=== PATIENT | female | born 1990 | race Caucasian/White ===

== ENCOUNTER 2017-04-10 18:08 | Emergency (ER) | payer OTHER ==
[~2017-04-10] VITALS: Ht 162.6 cm; Wt 106.1 kg
[~2017-04-10 18:08] MED LIST: ABAC300; ACET325; ACYC200 PO; ALBU90OI INH; AMIT25 PO; AMOCLA500 PO; AMOX500 PO; ASPI81EC PO; AZIT500 PO; BENTYL20 MG PO; BENZ100A PO; BIRTH CONTROL; BUPR150ER PO; BUSP10 PO; CEPH500 PO; CLIN150 PO; CLIN300 PO; CODACE30 PO; CODGUAEL PO; CYCL10 PO; Crutch1 EACH MISC; DIPH50 PO; DOXY100 PO; EPIPEN 2-P0.3 MG/0.3 IJ; ERGO50000 PO; ERYT.5TO RIGHTEYE; FLUC150A PO; Flagyl500 MG PO; GUAI600T33 PO; HYDACE5 PO; HYDGUAL120 PO; IBUP200; IBUP600 PO; IBUP800; IBUP800 PO; LEVSOD50 PO; LORA.5; LORA1; LORA1 PO; MAGCIT300 PO; MECL25 PO; MEDICAL MARIJUANA; MELO7.5 PO; METF500; METO10 PO; NAPR500; NAPR500 PO; NAPROXEN PRN; NEOCOLOTSU OT; Naprosyn500 MG PO; ONDA4 PO; OSEL75CA PO; OXYACE5T PO; OXYC5; PENVK500; PENVK500 PO; PRED5 PO; PROACE100; PROACE100 PO; PROM25 PO; Prednisone20 MG PO; RXNAPNA550 PO; RXOXYACE PO; RXTRAM50 PO; SULF10OPSA OU; SULTRIDS PO; Seroquel50 MG PO; Synthroid25 MCG PO; TRAM50; TRAM50 PO; TRAZ50 PO; TRIA80TC; Ultram PO; Ultram50 MG PO; VENL37.5 PO; VENL37.5ER PO; VENL75ER PO; ZYRTEC10 M1 PO; [UNRECOGNIZED DRUG - OTHER] MC; [UNRECOGNIZED DRUG - REMARK]; [UNRECOGNIZED DRUG - REMARK]
[2017-04-10 20:15] LABS: Calcium, Ionized (POC) 1.18 mmol/L (1.10-1.46); Chloride (POC) 103 mmol/L (98-108); Creatinine (POC) 0.6 mg/dL (0.6-1.0); Glucose (ISTAT POC) 86 mg/dL (70-99); Hemoglobin (POC) 14.3 g/dL (12.0-16.0); Potassium (POC) 3.4 mmol/L (3.5-5.5); Sodium (POC) 143 mmol/L (135-148); Total CO2 (POC) 27 mmol/L (21-32)
[2017-04-10] MEDS ORDERED: Percocet 5-3251 EACH PO (20:23)
[2017-04-10] MEDS ORDERED: MEDR10 PO (20:23)
[2017-10-07] MEDS ORDERED: LAMO25 PO (11:37)
[2017-10-07] MEDS ORDERED: Keflex500 MG PO (13:08)
[2017-10-07] MEDS ORDERED: Percocet 5-3251 EACH PO (13:08)
== END 2017-04-10 20:40 | disposition home or self-care (01) ==
LOC: ER 18:08
PROVIDERS: Emergency Medicine
DX: N93.8 Other specified abnormal uterine and vaginal bleeding (principal); N94.6 Dysmenorrhea, unspecified; F41.9 Anxiety disorder, unspecified; F43.10 Post-traumatic stress disorder, unspecified; G43.909 Migraine, unspecified, not intractable, without status migrainosus; F32.9 Major depressive disorder, single episode, unspecified; F90.9 Attention-deficit hyperactivity disorder, unspecified type; F17.210 Nicotine dependence, cigarettes, uncomplicated
CPT/HCPCS: 36415; 80047; 81025; 85014; 99283

== ENCOUNTER → 2017-04-17 | Outpatient (CLI) | payer OTHER ==
[~2017-04-17] MED LIST changes: +BENADRYL25 MG PO; +Bactrim Ds Tab1 EACH PO; +Keflex500 MG PO; +LAMO25 PO; +MEDR10 PO; +NICO21TP; +ONDA4ODT MM; +Percocet 5-3251 EACH PO; +Vistaril25 MG PO; +Zithromax250 MG PO; +Zofran4 MG PO
[2017-04-17 16:45] LABS: Specimen Source CERVIX
[2017-04-18 08:43] LABS: Source Cervix
== END ==
LOC: LAB 11:59
PROVIDERS: Registered Nurse Community Health
DX: Z11.3 Encounter for screening for infections with a predominantly sexual mode of transmission (principal); N94.12 Deep dyspareunia
CPT/HCPCS: 87070; 87205; 87491; 87591

== ENCOUNTER 2017-04-23 11:21 | Emergency (ER) | payer OTHER ==
[~2017-04-23] VITALS: Ht 162.6 cm; Wt 106.6 kg
[~2017-04-23 11:21] MED LIST changes: -BENADRYL25 MG PO; -Bactrim Ds Tab1 EACH PO; -Keflex500 MG PO; -LAMO25 PO; -NICO21TP; -ONDA4ODT MM; -Vistaril25 MG PO; -Zithromax250 MG PO; -Zofran4 MG PO
[2017-04-23] MEDS ORDERED: IBUP800 PO (11:40)
[2017-04-23] MEDS ORDERED: CLIN300 PO (11:40)
[2017-04-23] MEDS ORDERED: Vistaril25 MG PO (13:16)
[2017-04-23] MEDS ORDERED: Flagyl500 MG PO (13:16)
[2017-04-23] MEDS ORDERED: BENADRYL25 MG PO (13:16)
[2017-10-07] MEDS ORDERED: LAMO25 PO (11:37)
[2017-10-07] MEDS ORDERED: Keflex500 MG PO (13:08)
[2017-10-07] MEDS ORDERED: Percocet 5-3251 EACH PO (13:08)
== END 2017-04-23 13:37 | disposition home or self-care (01) ==
LOC: ER 11:21
DX: L27.1 Localized skin eruption due to drugs and medicaments taken internally (principal); T36.8X5A Adverse effect of other systemic antibiotics, initial encounter; F41.9 Anxiety disorder, unspecified; F32.9 Major depressive disorder, single episode, unspecified; F17.210 Nicotine dependence, cigarettes, uncomplicated; Z88.0 Allergy status to penicillin; Z88.1 Allergy status to other antibiotic agents; Z88.5 Allergy status to narcotic agent; Z79.899 Other long term (current) drug therapy; Z79.2 Long term (current) use of antibiotics; Z90.49 Acquired absence of other specified parts of digestive tract
CPT/HCPCS: 93005; 93010; 99283; Q0163

== ENCOUNTER 2017-05-13 10:37 | Emergency (ER) | payer OTHER ==
[~2017-05-13] VITALS: Ht 165.1 cm; Wt 106.6 kg
[~2017-05-13 10:37] MED LIST changes: +BENADRYL25 MG PO; +Vistaril25 MG PO
[2017-05-13 11:43] LABS: Source, Urine Clean Catch
[2017-05-13 11:50] LABS: Bilirubin, Urine Neg (Neg); Blood, Urine 5+ (Neg); Glucose Qualitative, Urine Neg (Neg); Ketones, Urine 1+ (Neg); Leukocyte Esterase, Urine 2+ (Neg); Nitrite, Urine Neg (Neg); Protein, Urine 2+ (Neg); Specific Gravity, Urine 1.015 (1.003-1.022); Urobilinogen, Urine NORM (Normal)
[2017-05-13 11:52] LABS: BASOPHILS ABSOLUTE AUTO 0.07 K/mm3 (0.00-0.23); BASOPHILS PERCENT AUTO 1 % (0-2); EOSINOPHILS ABSOLUTE AUTO 0.08 K/mm3 (0.00-0.68); EOSINOPHILS PERCENT AUTO 1 % (0-6); Hemoglobin 13.8 g/dL (11.5-16.0); IMMATURE GRAN ABSOLUTE AUTO 0.02 K/mm3 (0.00-0.10); IMMATURE GRAN PERCENT AUTO 0 % (0-1); LYMPHOCYTES ABSOLUTE AUTO 3.06 K/mm3 (0.84-5.20); LYMPHOCYTES PERCENT AUTO 29 % (21-46); MONOCYTES ABSOLUTE AUTO 0.42 K/mm3 (0.16-1.47); MONOCYTES PERCENT AUTO 4 % (4-13); Mean Corpuscular HGB 29.4 pg (26.0-34.0); Mean Corpuscular HGB Conc 32.1 g/dL (31.5-36.5); Mean Corpuscular Volume 92 fL (80-100); Mean Platelet Volume 9.4 fL (9.1-12.4); NEUTROPHILS ABSOLUTE AUTO 6.96 K/mm3 (1.96-9.15); NEUTROPHILS PERCENT AUTO 66 % (41-73); Platelet Count 449 K/mm3 (150-400); RDW Coefficient Variation 12.1 % (11.7-14.2); RDW Standard Deviation 40.8 fL (35.1-46.3); White Blood Cell Count 10.61 K/mm3 (4.00-11.30)
[2017-05-13 12:01] LABS: Color, Urine Red (P-Yellow)
[2017-05-13 12:02] LABS: Appearance, Urine Cloudy (Clear); Red Blood Cells, Urine TNTC /hpf (0-2); Squamous Epithelial Cells Few /hpf (Few)
[2017-05-13 12:04] LABS: Bacteria Few /hpf
[2017-05-13 12:17] LABS: Alanine Aminotransfer (ALT/SGP 48 U/L (12-78); Albumin, Blood 4.1 g/dL (3.4-5.0); Albumin/Globulin Ratio 1.1 (0.8-1.8); Alk Phos 68 U/L (50-136); Anion Gap 8 mmol/L (6-16); Aspartate Aminotrans (AST/SGOT 20 U/L (12-37); Bilirubin, Total 0.2 mg/dL (0.1-1.0); Blood Urea Nitrogen 9 mg/dL (8-24); Bun/Creatinine Ratio 15.5 (12.0-20.0); CO2, Blood 25 mmol/L (21-32); Calcium, Blood 8.9 mg/dL (8.5-10.1); Chloride, Blood 107 mmol/L (98-108); Creatinine, Blood 0.58 mg/dL (0.40-1.00); Globulin, Blood 3.8 g/dL (2.2-4.0); Glomerular Filtration Rate >60 (60-); Glucose, Blood 90 mg/dL (70-99); Sodium, Blood 140 mmol/L (136-145); Total Protein, Blood 7.9 g/dL (6.4-8.2)
[2017-10-07] MEDS ORDERED: LAMO25 PO (11:37)
[2017-10-07] MEDS ORDERED: Keflex500 MG PO (13:08)
[2017-10-07] MEDS ORDERED: Percocet 5-3251 EACH PO (13:08)
== END 2017-05-13 13:30 | disposition home or self-care (01) ==
LOC: ER 10:37
PROVIDERS: Emergency Medicine
DX: N92.1 Excessive and frequent menstruation with irregular cycle (principal); F41.9 Anxiety disorder, unspecified; F32.9 Major depressive disorder, single episode, unspecified; F43.10 Post-traumatic stress disorder, unspecified; G43.909 Migraine, unspecified, not intractable, without status migrainosus; F17.210 Nicotine dependence, cigarettes, uncomplicated; Z88.0 Allergy status to penicillin; Z88.1 Allergy status to other antibiotic agents; Z88.5 Allergy status to narcotic agent
CPT/HCPCS: 36415; 80053; 81001; 81025; 83690; 85025; 86850; 86900; 86901; 87086; 96374; 99283; J1885

== ENCOUNTER 2017-06-01 07:43 | Day surgery (SDC) | payer OTHER ==
[~2017-06-01] VITALS: Ht 165.1 cm; Wt 101.5 kg
[2017-06-01] MEDS ORDERED: NICO21TP (08:34)
[2017-10-07] MEDS ORDERED: LAMO25 PO (11:37)
[2017-10-07] MEDS ORDERED: Percocet 5-3251 EACH PO (13:08)
[2017-10-07] MEDS ORDERED: Keflex500 MG PO (13:08)
== END 2017-06-01 13:00 | disposition home or self-care (01) ==
LOC: ORSCSDS 07:43
PROVIDERS: Obstetrics & Gynecology
PROC: 0UDB7ZX Extraction of Endometrium, Via Natural or Artificial Opening, Diagnostic (ICD-10-PCS; principal; 2017-06-01 09:00)
PROC: 0WJJ4ZZ Inspection of Pelvic Cavity, Percutaneous Endoscopic Approach (ICD-10-PCS; principal; 2017-06-01 09:00)
DX: R10.2 Pelvic and perineal pain (principal); N80.3 Endometriosis of pelvic peritoneum; N93.8 Other specified abnormal uterine and vaginal bleeding; Z86.718 Personal history of other venous thrombosis and embolism; E28.2 Polycystic ovarian syndrome; M79.7 Fibromyalgia; F32.9 Major depressive disorder, single episode, unspecified; F17.210 Nicotine dependence, cigarettes, uncomplicated
CPT/HCPCS: 88305; J0171; J1100; J1580; J1885; J2250; J2405; J2710; J3010; J7120

== ENCOUNTER 2017-06-13 19:16 | Emergency (ER) | payer OTHER ==
[~2017-06-13] VITALS: Ht 165.1 cm; Wt 100.7 kg
[~2017-06-13 19:16] MED LIST changes: +NICO21TP
[2017-06-13] MEDS ORDERED: IBUP800 PO (19:38)
[2017-06-13] MEDS ORDERED: ONDA4ODT MM (20:52)
[2017-06-13] MEDS ORDERED: Zithromax250 MG PO (20:52)
== END 2017-06-13 21:05 | disposition home or self-care (01) ==
LOC: ER 19:16
DX: J02.9 Acute pharyngitis, unspecified (principal); Z88.0 Allergy status to penicillin; Z88.1 Allergy status to other antibiotic agents; Z88.5 Allergy status to narcotic agent; F41.9 Anxiety disorder, unspecified; G43.909 Migraine, unspecified, not intractable, without status migrainosus; F43.10 Post-traumatic stress disorder, unspecified; F32.9 Major depressive disorder, single episode, unspecified; F17.210 Nicotine dependence, cigarettes, uncomplicated
CPT/HCPCS: 87081; 87430; 99283

== ENCOUNTER 2017-11-10 09:28 | Emergency (ER) | payer OTHER ==
[~2017-11-10] VITALS: Ht 165.1 cm; Wt 98.4 kg
[~2017-11-10 09:28] MED LIST changes: +Keflex500 MG PO; +LAMO25 PO; +ONDA4ODT MM; +Zithromax250 MG PO
[2017-11-10 10:59] LABS: BASOPHILS ABSOLUTE AUTO 0.06 K/mm3 (0.00-0.23); BASOPHILS PERCENT AUTO 1 % (0-2); EOSINOPHILS ABSOLUTE AUTO 0.03 K/mm3 (0.00-0.68); EOSINOPHILS PERCENT AUTO 0 % (0-6); Hematocrit 42.5 % (33.0-51.0); Hemoglobin 13.6 g/dL (11.5-16.0); IMMATURE GRAN ABSOLUTE AUTO 0.04 K/mm3 (0.00-0.10); IMMATURE GRAN PERCENT AUTO 0 % (0-1); LYMPHOCYTES ABSOLUTE AUTO 2.65 K/mm3 (0.84-5.20); LYMPHOCYTES PERCENT AUTO 26 % (21-46); MONOCYTES ABSOLUTE AUTO 0.48 K/mm3 (0.16-1.47); MONOCYTES PERCENT AUTO 5 % (4-13); Mean Corpuscular HGB 29.1 pg (26.0-34.0); Mean Corpuscular Volume 91 fL (80-100); Mean Platelet Volume 9.2 fL (9.1-12.4); NEUTROPHILS PERCENT AUTO 68 % (41-73); Platelet Count 451 K/mm3 (150-400); RDW Coefficient Variation 12.3 % (11.7-14.2); RDW Standard Deviation 41.1 fL (35.1-46.3); Red Blood Cell Count 4.67 M/mm3 (3.80-5.20); White Blood Cell Count 10.26 K/mm3 (4.00-11.30)
[2017-11-10 11:14] LABS: Alanine Aminotransfer (ALT/SGP 24 U/L (12-78); Albumin, Blood 4.1 g/dL (3.4-5.0); Albumin/Globulin Ratio 1.1 (0.8-1.8); Alk Phos 87 U/L (50-136); Anion Gap 6 mmol/L (6-16); Aspartate Aminotrans (AST/SGOT 14 U/L (12-37); Bilirubin, Total 0.4 mg/dL (0.1-1.0); Blood Urea Nitrogen 11 mg/dL (8-24); Bun/Creatinine Ratio 15.6 (12.0-20.0); CO2, Blood 26 mmol/L (21-32); Calcium, Blood 8.9 mg/dL (8.5-10.1); Chloride, Blood 107 mmol/L (98-108); Creatinine, Blood 0.71 mg/dL (0.40-1.00); Globulin, Blood 3.6 g/dL (2.2-4.0); Glomerular Filtration Rate >60 (60-); Glucose, Blood 91 mg/dL (70-99); Potassium, Blood 4.3 mmol/L (3.5-5.5); Sodium, Blood 139 mmol/L (136-145); Total Protein, Blood 7.7 g/dL (6.4-8.2)
[2017-11-10] MEDS ORDERED: Zofran4 MG PO (11:39)
== END 2017-11-10 12:17 | disposition home or self-care (01) ==
LOC: ER 09:28
PROVIDERS: Physician Assistant
DX: N80.9 Endometriosis, unspecified (principal); F41.9 Anxiety disorder, unspecified; F32.9 Major depressive disorder, single episode, unspecified; F17.210 Nicotine dependence, cigarettes, uncomplicated; Z88.0 Allergy status to penicillin; Z88.1 Allergy status to other antibiotic agents; Z88.5 Allergy status to narcotic agent; Z79.899 Other long term (current) drug therapy
CPT/HCPCS: 36415; 80053; 81000; 81025; 85025; 96361; 96374; 99284-25; J1885; J7030

== ENCOUNTER 2018-01-12 14:36 | Emergency (ER) | payer OTHER ==
[~2018-01-12] VITALS: Ht 165.1 cm; Wt 97.5 kg
[~2018-01-12 14:36] MED LIST changes: +Zofran4 MG PO
[2018-01-12] MEDS ORDERED: Bactrim Ds Tab1 EACH PO (14:57)
[2018-01-12] MEDS ORDERED: CEPH500 PO (14:57)
== END 2018-01-12 15:15 | disposition home or self-care (01) ==
LOC: ER 14:36
DX: L08.9 Local infection of the skin and subcutaneous tissue, unspecified (principal); Z88.0 Allergy status to penicillin; Z88.1 Allergy status to other antibiotic agents; Z88.5 Allergy status to narcotic agent; Z79.899 Other long term (current) drug therapy; F41.9 Anxiety disorder, unspecified; F43.10 Post-traumatic stress disorder, unspecified; G43.909 Migraine, unspecified, not intractable, without status migrainosus; F32.9 Major depressive disorder, single episode, unspecified; F90.9 Attention-deficit hyperactivity disorder, unspecified type; F17.210 Nicotine dependence, cigarettes, uncomplicated
CPT/HCPCS: 99283

== ENCOUNTER 2018-08-22 06:01 | Day surgery (SDC) | payer OTHER ==
[~2018-08-22] VITALS: Ht 165.1 cm; Wt 97.3 kg
[~2018-08-22 06:01] MED LIST changes: +Bactrim Ds Tab1 EACH PO
[2018-08-22] MEDS ORDERED: HYDPAM50 PO (07:21)
--- NOTE | 2018-08-22 08:42 | NUR ---
08/22/18 [id number] Wendy Cho, SPIDER USED
--- NOTE | 2018-08-22 10:13 | NUR ---
08/22/18 Sharee3 Diam[facility] Pride PATIENT TO BR ON ARRIVAL TO STEP DOWN TO VOID, C/O 10/10 PAIN IN RIGHT ANKLE.MED C FENTANYL 50 MCG. TO BR IN WC, VOID, RETURNED TO RECLINER, NAUSEA WITH SMALL EMISIS, PAIN CONTINUES, IN RECLINER, FOOT ELEVATED ON PILLOWS. MED C FENTANYL 50 MCG AND ZOFRAN 4 MG IV, NOW RESTING MORE COMFORTABLE NOW RATES PAIN 4/10, NAUSEA RELIEVED
== END 2018-08-22 11:42 | disposition home or self-care (01) ==
LOC: ORSCSDS 06:01
PROVIDERS: Orthopaedic Surgery
PROC: 0MQQ4ZZ Repair Right Ankle Bursa and Ligament, Percutaneous Endoscopic Approach (ICD-10-PCS; principal; 2018-08-22 07:30)
PROC: 0SBF4ZZ Excision of Right Ankle Joint, Percutaneous Endoscopic Approach (ICD-10-PCS; principal; 2018-08-22 07:30)
PROC: 0SQF0ZZ Repair Right Ankle Joint, Open Approach (ICD-10-PCS; principal; 2018-08-22 07:30)
DX: M25.371 Other instability, right ankle (principal); M25.571 Pain in right ankle and joints of right foot; S93.401A Sprain of unspecified ligament of right ankle, initial encounter; F17.210 Nicotine dependence, cigarettes, uncomplicated; M79.7 Fibromyalgia; E66.9 Obesity, unspecified; Z68.35 Body mass index [BMI] 35.0-35.9, adult
CPT/HCPCS: C1713; J0171; J1100; J1885; J2250; J2405; J2704; J2765; J2795; J3010; J3370; J7120

== ENCOUNTER 2019-04-07 18:08 | Emergency (ER) | payer OTHER ==
[~2019-04-07] VITALS: Ht 165.1 cm; Wt 102.5 kg
[~2019-04-07 18:08] MED LIST changes: +HYDPAM50 PO
[2019-04-07 19:26] LABS: Source, Urine Clean Catch
[2019-04-07 19:34] LABS: Bilirubin, Urine Neg (Neg); Blood, Urine 1+ (Neg); Glucose Qualitative, Urine Neg (Neg); Ketones, Urine Neg (Neg); Leukocyte Esterase, Urine Neg (Neg); Nitrite, Urine Neg (Neg); Protein, Urine Neg (Neg); Specific Gravity, Urine 1.005 (1.003-1.022); Urobilinogen, Urine NORM (Normal)
[2019-04-07 19:40] LABS: Appearance, Urine Clear (Clear); Color, Urine Yellow (P-Yellow)
[2019-04-07 19:42] LABS: Influenza A Negative (NEGATIVE); Influenza B Negative (NEGATIVE)
[2019-04-07 19:46] LABS: Bacteria Mod /hpf; Red Blood Cells, Urine 0-2 /hpf (0-2); Squamous Epithelial Cells Few /hpf (Few); White Blood Cells, Urine 0-2 /hpf (0-5)
[2019-04-07] MEDS ORDERED: AMIT25 PO (21:56)
[2019-04-07] MEDS ORDERED: LEVSOD50 PO (21:56)
[2019-04-07] MEDS ORDERED: Buspirone HCl15 MG PO (21:56)
== END 2019-04-07 22:42 | disposition home or self-care (01) ==
LOC: ER 18:08
PROVIDERS: Physician Assistant
DX: J06.9 Acute upper respiratory infection, unspecified (principal); Z88.0 Allergy status to penicillin; Z88.1 Allergy status to other antibiotic agents; Z88.5 Allergy status to narcotic agent; Z79.899 Other long term (current) drug therapy; F43.10 Post-traumatic stress disorder, unspecified; G43.909 Migraine, unspecified, not intractable, without status migrainosus; F32.9 Major depressive disorder, single episode, unspecified; Z87.891 Personal history of nicotine dependence
CPT/HCPCS: 81001; 84703; 87086; 87804; 96372; 99283-25; J1885

== ENCOUNTER → 2019-10-27 | Outpatient (CLI) | payer OTHER ==
[~2019-10-27] MED LIST changes: +Buspirone HCl15 MG PO; +VITAMIN D-32000 UNIT PO
[2019-10-28 07:03] LABS: Candida species (DNA Probe) Negative (NEGATIVE); G. vaginalis (DNA Probe) Negative (NEGATIVE); T. vaginalis (DNA Probe) Negative (NEGATIVE)
== END ==
LOC: LAB 18:27 → LAB SHORT 18:27
PROVIDERS: Nurse Practitioner Family
DX: Z01.419 Encounter for gynecological examination (general) (routine) without abnormal findings (principal)
CPT/HCPCS: 87070; 87205; 87480; 87510; 87660; G0123

== ENCOUNTER → 2020-01-21 | Outpatient (CLI) | payer OTHER | END | disposition home or self-care (01) | LOC: LAB EV 17:01 → LAB SHORT 17:01 | DX: L72.3 Sebaceous cyst (principal) | CPT/HCPCS: 87070; 87075; 87076; 87205 ==

== ENCOUNTER → 2020-11-04 | Outpatient (CLI) | payer OTHER ==
[2020-11-05 10:05] LABS: Candida species (DNA Probe) Negative (NEGATIVE); G. vaginalis (DNA Probe) Negative (NEGATIVE); T. vaginalis (DNA Probe) Negative (NEGATIVE)
[2020-11-10 12:31] LABS: HPV 16 Negative (Negative); HPV 18 Negative (Negative); HPV OTHER HR TYPES Negative (Negative)
== END | disposition home or self-care (01) ==
LOC: LAB SHORT 11:30 → LAB 11:30
PROVIDERS: Nurse Practitioner Family
DX: Z12.4 Encounter for screening for malignant neoplasm of cervix (principal); Z11.3 Encounter for screening for infections with a predominantly sexual mode of transmission; N96 Recurrent pregnancy loss
CPT/HCPCS: 87070; 87205; 87480; 87510; 87624; 87660; G0123

== ENCOUNTER 2022-04-17 07:00 | Emergency (ER) | payer OTHER ==
[~2022-04-17] VITALS: Ht 165.1 cm; Wt 77.1 kg
== END 2022-04-17 09:30 | disposition home or self-care (01) ==
LOC: ER 07:00
DX: S46.911A Strain of unspecified muscle, fascia and tendon at shoulder and upper arm level, right arm, initial encounter (principal); M79.7 Fibromyalgia; F17.210 Nicotine dependence, cigarettes, uncomplicated; Z88.0 Allergy status to penicillin; Z88.1 Allergy status to other antibiotic agents; Z88.8 Allergy status to other drugs, medicaments and biological substances; Z88.5 Allergy status to narcotic agent; Z79.899 Other long term (current) drug therapy; X58.XXXA Exposure to other specified factors, initial encounter
CPT/HCPCS: J1885

== ENCOUNTER 2023-05-02 14:11 | Emergency (ER) | payer OTHER ==
[~2023-05-02] VITALS: Ht 165.1 cm; Wt 81.7 kg
[2023-05-02 15:55] VITALS: BP 127/90
== END 2023-05-02 17:05 | disposition home or self-care (01) ==
LOC: ER 14:11
DX: R60.0 Localized edema (principal); G43.909 Migraine, unspecified, not intractable, without status migrainosus; Z86.718 Personal history of other venous thrombosis and embolism; F43.10 Post-traumatic stress disorder, unspecified; M79.7 Fibromyalgia; F90.9 Attention-deficit hyperactivity disorder, unspecified type; Z79.899 Other long term (current) drug therapy; F17.210 Nicotine dependence, cigarettes, uncomplicated; Z88.0 Allergy status to penicillin; Z88.1 Allergy status to other antibiotic agents; Z88.5 Allergy status to narcotic agent
CPT/HCPCS: 73610; 93971; 99284-25

== ENCOUNTER 2023-07-09 20:33 | Emergency (ER) | payer OTHER ==
[~2023-07-09] VITALS: Ht 165.1 cm; Wt 81.7 kg
[2023-07-09 21:30] VITALS: BP 123/89
== END 2023-07-09 22:59 | disposition home or self-care (01) ==
LOC: ER 20:33
DX: S83.92XA Sprain of unspecified site of left knee, initial encounter (principal); S80.02XA Contusion of left knee, initial encounter; F17.210 Nicotine dependence, cigarettes, uncomplicated; W18.30XA Fall on same level, unspecified, initial encounter; Z79.890 Hormone replacement therapy; Z79.899 Other long term (current) drug therapy; Z88.0 Allergy status to penicillin; Z88.1 Allergy status to other antibiotic agents; Z88.5 Allergy status to narcotic agent; X50.1XXA Overexertion from prolonged static or awkward postures, initial encounter
CPT/HCPCS: 29505; 73560-LT; 99283-25